=== PATIENT | male | born 1970 | race Caucasian/White ===

== ENCOUNTER 2016-12-08 15:07 | Outpatient (CLI) | payer OTHER | END 2016-12-08 15:08 | disposition home or self-care (01) | LOC: NC 15:07 | PROVIDERS: ATTEND Internal Medicine | DX: E66.01 Morbid (severe) obesity due to excess calories (principal); Z71.3 Dietary counseling and surveillance; Z68.43 Body mass index [BMI] 50.0-59.9, adult; I10 Essential (primary) hypertension ==